=== PATIENT | female | born 1995 | race Caucasian/White ===

== ENCOUNTER 2022-03-08 09:15 | Day surgery (SDC) | payer OTHER ==
[2022-03-08 09:35] VITALS: BMI 30.9
[2022-03-08] MEDS ORDERED: hydrALAZINE 20 MG/ML VIAL SLOW IVP PRN (10:12)
== END 2022-03-08 13:30 | disposition home or self-care (01) ==
LOC: CSHLD/OP 09:15
PROVIDERS: ATTEND Obstetrics & Gynecology
DX: O36.8130 Decreased fetal movements, third trimester, not applicable or unspecified (principal); Z3A.33 33 weeks gestation of pregnancy; Z79.899 Other long term (current) drug therapy
CPT/HCPCS: 76819; 99281

== ENCOUNTER 2022-04-14 10:02 | Day surgery (SDC) | payer OTHER ==
[2022-04-14 10:31] VITALS: BMI 31.8
== END 2022-04-14 13:28 | disposition home or self-care (01) ==
LOC: CSHLD/OP 10:02
PROVIDERS: ATTEND Family Medicine
DX: O36.8130 Decreased fetal movements, third trimester, not applicable or unspecified (principal); Z3A.39 39 weeks gestation of pregnancy; O99.342 Other mental disorders complicating pregnancy, second trimester; F32.9 Major depressive disorder, single episode, unspecified; O22.43 Hemorrhoids in pregnancy, third trimester; Z79.899 Other long term (current) drug therapy
CPT/HCPCS: 59025; 76819; 99282

== ENCOUNTER 2022-04-16 05:30 | Inpatient (IN) | payer OTHER ==
[2022-04-16 08:12] VITALS: BMI 32.8
[2022-04-16] MEDS ORDERED: Ibuprofen 800 MG TAB PO PRN (08:34)
[2022-04-16] MEDS ORDERED: Acetaminophen 500 MG TAB PO PRN (08:34)
[2022-04-16] MEDS ORDERED: Misoprostol 200 MCG TAB PR PRN (08:34)
[2022-04-16] MEDS ORDERED: hydrALAZINE 20 MG/ML VIAL SLOW IVP PRN ×2 (08:34→16:31)
[2022-04-16] MEDS ORDERED: Carboprost 250 MCG/ML AMP IM PRN (08:34)
[2022-04-16] MEDS ORDERED: HYDROcodone/Acetaminophen 5/325 mg Tablet PO PRN ×2 (08:34→16:31)
[2022-04-16] MEDS ORDERED: Diphenoxylate HCl/Atropine Tablet PO PRN (08:34)
[2022-04-16] MEDS ORDERED: Lidocaine 1% (PF) 30 ML VIAL SC PRN (08:34)
[2022-04-16] MEDS ORDERED: Butorphanol Tartrate 1 MG/ML VIAL SLOW IVP PRN (08:34)
[2022-04-16] MEDS ORDERED: Promethazine HCl 25 MG/ML VIAL IM PRN ×2 (08:34→16:31)
[2022-04-16] MEDS ORDERED: Ondansetron PF 4 MG/2 ML Vial IVP PRN ×2 (08:34→16:31)
[2022-04-16] MEDS ORDERED: Lactated Ringer's 1,000 ML IV SCH (08:45)
[2022-04-16] MEDS ORDERED: NS w/ Oxytocin 30 units 500 ML IV SCH ×3 (08:45→16:31)
[2022-04-16] MEDS ORDERED: NS w/ Oxytocin 30 units 500 ML ONE (08:50)
[2022-04-16 09:06] LABS: Hemoglobin 12.7 g/dL (12.0-15.5); Mean Corpuscular HGB CONC 34.3 g/dL (32.0-36.0); Mean Corpuscular Hemoglobin 32.1 pg (27.0-33.0); Mean Corpuscular Volume 93.4 fl (81.6-98.3); Platelet Count 176 10x3/uL (150-450); RBC Distribution Width 12.2 % (11.5-14.5); Red Blood Cell (RBC) Count 3.96 10x6/uL (3.90-5.03); White Blood Cell (WBC) Count 10.2 10x3/uL (3.5-10.5)
[2022-04-16 09:23] LABS: SARS-CoV-2 NAA Rapid Test Not Detected (NotDetected)
[2022-04-16 09:30] LABS: HBSAg Index 0.19 S/CO (0-0.99); Hep B Surf Ag Non-Reactive S/CO (NonReactive); Syphilis Antibody Nonreactive (Nonreactive); Syphilis Antibody Index 0.01 S/CO (<1.00 Non-Reactive)
[2022-04-16] MEDS ORDERED: Lidocaine 1% PF 5 ML VIAL ONE (13:41)
[2022-04-16] MEDS ORDERED: PROPOFOL 40 ML ONE (13:41)
[2022-04-16] MEDS ORDERED: PROPOFOL 20 ML ONE (13:53)
[2022-04-16] MEDS ORDERED: Fentanyl 100 MCG/2 ML VIAL ONE (13:53)
[2022-04-16] MEDS ORDERED: Ketorolac Tromethamine 30 MG/ML VIAL ONE (14:11)
[2022-04-16] MEDS ORDERED: Ondansetron PF 4 MG/2 ML Vial ONE (14:11)
[2022-04-16] MEDS ORDERED: Dexamethasone 4 mg/ml Vial ONE (14:11)
[2022-04-16] MEDS ORDERED: Lidocaine 2% MPF 10 ML AMP (For Epidural Use) ONE (14:11)
[2022-04-16] MEDS ORDERED: Lidocaine 1% (PF) 30 ML VIAL ONE (14:11)
[2022-04-16] MEDS ORDERED: traMADol HCl 50 MG TAB PO PRN (16:31)
[2022-04-16] MEDS ORDERED: Milk Of Magnesia 30 ML UDCUP PO PRN (16:31)
[2022-04-16] MEDS ORDERED: diphenhydrAMINE 25 MG CAP PO PRN (16:31)
[2022-04-16] MEDS ORDERED: Lanolin Ointment 7 GM TUBE TOP PRN (16:31)
[2022-04-16] MEDS ORDERED: Bisacodyl 10 MG SUPP PR PRN (16:31)
[2022-04-16] MEDS ORDERED: Boostrix 0.5 ML (Tdap) VIAL (>/=7 yrs of age) IM ONE (16:31)
[2022-04-16] MEDS ORDERED: Benzocaine-Menthol 82.5 ML CAN TOP PRN (16:31)
[2022-04-16] MEDS: Ferrous Sulfate 325 MG TAB PO SCH (18:10)
[2022-04-16] MEDS: Docusate 100 MG CAP PO SCH (21:10)
[2022-04-16] MEDS: Ibuprofen 800 MG TAB PO SCH (21:10)
[2022-04-17] MEDS: Ibuprofen 800 MG TAB PO SCH (05:47)
[2022-04-17] MEDS: Ferrous Sulfate 325 MG TAB PO SCH (08:11)
[2022-04-17] MEDS: Docusate 100 MG CAP PO SCH (08:12)
[2022-04-17] MEDS ORDERED: Prenatal Vitamin 1 TAB PO SCH (09:00)
[2022-04-17 11:36] VITALS: BP 119/67; TEMP 98.1
== END 2022-04-17 15:17 | disposition home or self-care (01) | DRG 807 ==
LOC: CSHLD 06:38 → CSHPP 16:29
PROVIDERS: ADMIT Family Medicine; ATTEND Family Medicine
PROC: 3E033VJ Introduction of Other Hormone into Peripheral Vein, Percutaneous Approach (ICD-10-PCS; principal; 2022-04-16)
PROC: 10E0XZZ Delivery of Products of Conception, External Approach (ICD-10-PCS; 2022-04-16)
PROC: 0UQMXZZ Repair Vulva, External Approach (ICD-10-PCS; 2022-04-16)
DX: O71.82 Other specified trauma to perineum and vulva (principal); Z37.0 Single live birth; O70.0 First degree perineal laceration during delivery; Z3A.39 39 weeks gestation of pregnancy; Z20.822 Contact with and (suspected) exposure to COVID-19; Z79.899 Other long term (current) drug therapy
CPT/HCPCS: 36415; 51701; 85027; 86780; 86850; 86900; 86901; 87340; 99152; J1100; J1885; J2001; J2405; J2590; J2704; J3010; U0002

== ENCOUNTER 2024-08-29 04:11 | Day surgery (SDC) | payer OTHER ==
[2024-08-29 04:27] VITALS: BMI 30.9
== END 2024-08-29 06:54 | disposition home or self-care (01) ==
LOC: CSHLD/OP 04:11
PROVIDERS: ATTEND Obstetrics & Gynecology
DX: O47.03 False labor before 37 completed weeks of gestation, third trimester (principal); O09.43 Supervision of pregnancy with grand multiparity, third trimester; O99.343 Other mental disorders complicating pregnancy, third trimester; F32.A Depression, unspecified; Z3A.29 29 weeks gestation of pregnancy; Z87.891 Personal history of nicotine dependence; Z79.899 Other long term (current) drug therapy
CPT/HCPCS: 76817; 80053; 81001; 83690; 85025; 87086; 99283; 99284